=== PATIENT | female | born 1930 | race Two or more races ===

== ENCOUNTER → 2017-04-14 | Outpatient (CLI) | payer MEDICARE ==
[~2017-04-14] MED LIST: ASPI1TAB PO; BISO10TA6 PO; CALCTAB74 PO; FLUT22IN INFIL; LEVO50TA5 PO; LOSA100T36 PO; NORCOTAB PO; OMEP40CA2 PO; OXYB5TAB10 PO; PRAV20TA2 PO; PROAAER10 INH; VITA500T PO
--- NOTE | 2017-04-14 15:10 | REP ---
RIGHT LOWER EXTREMITY DUPLEX VENOUS ULTRASOUND WITH REFLUX STUDY: HISTORY: Atherosclerosis of the [place] arteries of the right leg. Ulceration of the heel and midfoot. Question venous insufficiency. Consideration for EVLT therapy. FINDINGS: The right lower extremity deep venous system is anechoic and fully compressible on two-dimensional scanning. Color flow and spectral Doppler interrogation show no evidence of deep vein thrombosis. REFLUX STUDY: Significant reflux is observed in the greater saphenous vein and in the anterior accessory greater saphenous vein in the right lower extremity. Reflux is observed in the common femoral vein segment as well, greater than 0.5 seconds in duration. The anterior accessory greater saphenous vein is present measuring 7.1 mm. It shows reflux greater than 0.5 seconds. The greater saphenous vein at the saphenofemoral junction measures 4.4 mm in diameter and shows reflux less than 0.5 seconds. The greater saphenous vein at the midthigh level measures 5 mm in AP dimension, and reflux is seen measuring 0.9 seconds in duration. At the knee, the greater saphenous vein measures 4.5 mm in dimension and demonstrates 6.1 seconds of reflux. The lesser saphenous vein measures 5.9 mm. The greater saphenous vein becomes quite superficial at midthigh to just below the knee and is just beneath the skin surface with collateral varicosities present. IMPRESSION: Significant reflux is noted in the greater saphenous vein and anterior accessory greater saphenous vein. Superficial collateral varicosities are seen. Patient likely would benefit from EVLT therapy. Signed by Dequan Mccarthy MD 04/14/2017 03:24 P
== END ==
LOC: M RAD 12:37
PROVIDERS: ATTEND Surgery
DX: I82.811 Embolism and thrombosis of superficial veins of right lower extremity (principal)

== ENCOUNTER → 2017-05-11 | Outpatient (CLI) | payer MEDICARE ==
[~2017-05-11] MED LIST changes: +ACETAMINOPHEN 325 MG TAB As Ordered ONE; +HEPARIN 1,000 UNITS/ML 10ML VIAL (FOR RADIOLOGY& DIALYSIS ONLY) As Ordered ONE; +ISOVUE-300 61% 50ML VIAL (Q9967) As Ordered ONE; +LIDOCAINE 2% MDV 20 ML VIAL As Ordered ONE; +MIDAZOLAM INJ 2 MG/2 ML VIAL (J2250) As Ordered ONE; +PROTAMINE SULF INJ 50 MG/5 ML VIAL (J2720) As Ordered ONE; +fentaNYL 100 MCG/2 ML INJECTION (J3010) As Ordered ONE
--- NOTE | 2017-05-11 15:46 | REP ---
IMAGES DURING ABDOMINAL AORTOGRAM AND RIGHT LOWER EXTREMITY ANGIOGRAM: Multiple images are obtained during abdominal aortogram and right lower extremity angiography. Distal abdominal aorta and pelvic arteries are visualized as are the arteries of the right lower extremity. 5.6 minutes fluoroscopy time utilized. Signed by Ajit Paredes MD 05/13/2017 05:46 P
--- NOTE | 2017-05-27 05:55 | RO ---
DATE OF PROCEDURE: 05/11/2017 PREPROCEDURE DIAGNOSIS: Nonhealing right foot wounds. Right lower extremity varicose veins. Right lower extremity arterial atherosclerotic disease. Right lower extremity valvular insufficiency. POSTPROCEDURE DIAGNOSIS: Nonhealing right foot wounds. Right lower extremity varicose veins. Right lower extremity arterial atherosclerotic disease. Right lower extremity valvular insufficiency. PROCEDURE: Aortogram, iliofemoral angiogram, selective right common femoral arterial catheter placement with right lower extremity angiogram, aortic angioplasty with two 8 x 4 balloons, right common and external iliac artery angioplasty and stent with 10 x 49 Wallstents post dilated with 8 x 4 balloons, left common iliac and external iliac artery angioplasty and stent with 10 x 49 Wallstents post dilated with 8 x 4 balloons, bilateral common femoral arteriotomy closures with #6-[place] Citizen Mynx closure devices. SURGEON: Dr. Naresh Jasso. PEOPLESOFT FUNCTIONAL ANALYST: Jacqueline Jonas and Britt Pak, LRT ANESTHESIA: Local with sedation with 0.5 mg of Versed and 25 mcg of Fentanyl and 20 mL of 2% lidocaine. ESTIMATED BLOOD LOSS: FLUORO TIME: 5.6 minutes. CONTRAST: 24 mL heparin 5000 units, protamine 50 mg. SEDATION TIME: From 9:30 a.m. to 10 o'clock a.m. COMPLICATIONS: None. DRAINS: None. SPECIMENS: None. IMPLANTS: Bilateral femoral arteriotomy closures with Mynx closure devices. INDICATION: Patient is an 87-year-old female who underwent surgery on her right foot and had two lesions which have developed into ulcerations. After the surgery, these have been nonhealing despite having undergone aggressive wound care. Patient has nonpalpable pulses distally as well as severe varicose veins and venous insufficiency. Patient will undergo an angiogram with possible angioplasty and/or stent. Risks, benefits and alternative treatment options were discussed with the patient. Benefits included but were not limited to resolution of symptoms and healing of ulcerations. Alternative treatment options included but were not limited to no intervention. Risks included but were not limited to infection, bleeding, renal failure requiring hemodialysis, possible need for open surgical intervention, retroperitoneal hematoma, IV contrast reaction, cerebrovascular accident, myocardial infarction, pulmonary embolus, deep venous thrombosis (DVT), loss of limb, loss of life and poor outcome. Patient understands, accepts these risks and consents to proceed. PROCEDURE: The patient was taken to the operating room and placed supine on the angiography room table and then prepped and draped in a standard surgical fashion. The procedural time out was completed with myself and all members of the team in the procedural room confirming the correct patinet, procedure and laterality. The patient was then prepped and draped in the standard surgical fashion. The left common femoral artery was then cannulated with a micropuncture needle after anesthetizing the overlying skin with 2% lidocaine. The micropuncture wire was advanced through the micropuncture needle which was upsized to a micropuncture sheath. A Bentson wire was advanced through the micropuncture sheath which was upsized to a #5-[place] Citizen sheath. An Omniflush catheter was advanced over the [place] wire placed in the aorta and an aortogram was performed. Catheter was pulled down to the level of the bifurcation of iliac arteries and an iliofemoral angiogram was performed. Catheter was then directed over the bifurcation of the iliac arteries and placed in the right common femoral artery and a right lower extremity angiogram was performed. 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 The right common femoral artery was then cannulated and a sheath placed with a #6-[place] Citizen sheath after which the aorta was angioplastied with two 8 x 4 balloons which were inflated simultaneously. After both common and external iliac arteries had been stented with 10 x 49 Wallstents, the common and external iliac arteries were then angioplastied with post dilatation of the stents with the 8 x 4 balloons. A completion aortogram showed resolution of the stenosis in the aorta and both common and external iliac arteries. Catheters and wires were removed. Bilateral Mynx closure devices were used to close the arteriotomies in the right and left common femoral arteries with an additional 10 minutes of adjunctive pressure applied for hemostasis. Dressings were then applied. Patient tolerated the procedure well. All instrument, sponge and needle counts were correct at the end of the case. There were no complications. Dr. Jasso was present for and directed the entire case. Patient was transferred to the holding area and subsequently discharged in stable condition. RADIOLOGIC SUPERVISION INTERPRETATION: The aortogram showed severe aortic calcific plaquing and stenosis at the bifurcation of the iliac arteries which extended into the external and common iliac arteries. The common iliac arteries were then stented with 10 x 49 wall stents bilaterally and then the aorta, common iliac and external iliac arteries were angioplastied with the 8 x 4 balloons. The aorta was angioplastied with insufflation of the two 8 x 4 balloons simultaneously within the lumen of the aorta. Bilateral Mynx closure devices were used to close the arteriotomies in the right and left femoral arteries.
--- NOTE | 2017-05-28 11:34 | REPKIM ---
DATE OF PROCEDURE: 05/11/2017 PREPROCEDURE DIAGNOSIS: Nonhealing right foot wounds. Right lower extremity varicose veins. Right lower extremity arterial atherosclerotic disease. Right lower extremity valvular insufficiency. POSTPROCEDURE DIAGNOSIS: Nonhealing right foot wounds. Right lower extremity varicose veins. Right lower extremity arterial atherosclerotic disease. Right lower extremity valvular insufficiency. PROCEDURE: Aortogram, iliofemoral angiogram, selective right common femoral arterial catheter placement with right lower extremity angiogram, aortic angioplasty with two 8 x 4 balloons, right common and external iliac artery angioplasty and stent with 10 x 49 Wallstents post dilated with 8 x 4 balloons, left common iliac and external iliac artery angioplasty and stent with 10 x 49 Wallstents post dilated with 8 x 4 balloons, bilateral common femoral arteriotomy closures with #6-[place] Mynx closure devices. SURGEON: Dr. Naresh Jasso. FORENSIC ENGINEER: Jacqueline Jonas and Britt Pak, LRT ANESTHESIA: Local with sedation with 0.5 mg of Versed and 25 mcg of Fentanyl and 20 mL of 2% lidocaine. ESTIMATED BLOOD LOSS: FLUORO TIME: 5.6 minutes. CONTRAST: 24 mL heparin 5000 units, protamine 50 mg. SEDATION TIME: From 9:30 a.m. to 10 o'clock a.m. COMPLICATIONS: None. DRAINS: None. SPECIMENS: None. IMPLANTS: Bilateral femoral arteriotomy closures with Mynx closure devices. INDICATION: Patient is an 87-year-old female who underwent surgery on her right foot and had two lesions which have developed into ulcerations. After the surgery, these have been nonhealing despite having undergone aggressive wound care. Patient has nonpalpable pulses distally as well as severe varicose veins and venous insufficiency. Patient will undergo an angiogram with possible angioplasty and/or stent. Risks, benefits and alternative treatment options were discussed with the patient. Benefits included but were not limited to resolution of symptoms and healing of ulcerations. Alternative treatment options included but were not limited to no intervention. Risks included but were not limited to infection, bleeding, renal failure requiring hemodialysis, possible need for open surgical intervention, retroperitoneal hematoma, IV contrast reaction, cerebrovascular accident, myocardial infarction, pulmonary embolus, deep venous thrombosis (DVT), loss of limb, loss of life and poor outcome. Patient understands, accepts these risks and consents to proceed. PROCEDURE: The patient was taken to the operating room and placed supine on the angiography room table and then prepped and draped in a standard surgical fashion. The procedural time out was completed with myself and all members of the team in the procedural room confirming the correct patient, procedure and laterality. The patient was then prepped and draped in the standard surgical fashion. The left common femoral artery was then cannulated with a micropuncture needle after anesthetizing the overlying skin with 2% lidocaine. The micropuncture wire was advanced through the micropuncture needle which was upsized to a micropuncture sheath. A Bentson wire was advanced through the micropuncture sheath which was upsized to a #5-[place] sheath. An Omniflush catheter was advanced over the [place] wire placed in the aorta and an aortogram was performed. Catheter was pulled down to the level of the bifurcation of iliac arteries and an iliofemoral angiogram was performed. Catheter was then directed over the bifurcation of the iliac arteries and placed in the right common femoral artery and a right lower extremity angiogram was performed. 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 The right common femoral artery was then cannulated and a sheath placed with a #6-[place] sheath after which the aorta was angioplastied with two 8 x 4 balloons which were inflated simultaneously. After both common and external iliac arteries had been stented with 10 x 49 Wallstents, the common and external iliac arteries were then angioplastied with post dilatation of the stents with the 8 x 4 balloons. A completion aortogram showed resolution of the stenosis in the aorta and both common and external iliac arteries. Catheters and wires were removed. Bilateral Mynx closure devices were used to close the arteriotomies in the right and left common femoral arteries with an additional 10 minutes of adjunctive pressure applied for hemostasis. Dressings were then applied. Patient tolerated the procedure well. All instrument, sponge and needle counts were correct at the end of the case. There were no complications. Dr. Jasso was present for and directed the entire case. Patient was transferred to the holding area and subsequently discharged in stable condition. RADIOLOGIC SUPERVISION INTERPRETATION: The aortogram showed severe aortic calcific plaquing and stenosis at the bifurcation of the iliac arteries which extended into the external and common iliac arteries. The common iliac arteries were then stented with 10 x 49 wall stents bilaterally and then the aorta, common iliac and external iliac arteries were angioplastied with the 8 x 4 balloons. The aorta was angioplastied with insufflation of the two 8 x 4 balloons simultaneously within the lumen of the aorta. Bilateral Mynx closure devices were used to close the arteriotomies in the right and left femoral arteries.
== END | disposition home or self-care (01) ==
LOC: M RADPRO 06:23 → M IRPRO 06:23
PROVIDERS: ATTEND Surgery Vascular Surgery
DX: I70.201 Unspecified atherosclerosis of native arteries of extremities, right leg (principal); I83.015 Varicose veins of right lower extremity with ulcer other part of foot; I87.2 Venous insufficiency (chronic) (peripheral)
CPT/HCPCS: 37221; 37246; 75625; 75716; 75774; C1725; C1760; C1769; C1876; C1887; C1894; J2250; J2720; J3010; Q9967

== ENCOUNTER → 2017-05-19 | Outpatient (CLI) | payer MEDICARE ==
[~2017-05-19] MED LIST changes: -ACETAMINOPHEN 325 MG TAB As Ordered ONE; -HEPARIN 1,000 UNITS/ML 10ML VIAL (FOR RADIOLOGY& DIALYSIS ONLY) As Ordered ONE; -ISOVUE-300 61% 50ML VIAL (Q9967) As Ordered ONE; -LIDOCAINE 2% MDV 20 ML VIAL As Ordered ONE; -MIDAZOLAM INJ 2 MG/2 ML VIAL (J2250) As Ordered ONE; -PROTAMINE SULF INJ 50 MG/5 ML VIAL (J2720) As Ordered ONE; -fentaNYL 100 MCG/2 ML INJECTION (J3010) As Ordered ONE
[2017-05-19 12:17] LABS: MEAN CORPUSCULAR HEMOGLOBIN 32.2 pg (27.0-33.0); MEAN CORPUSCULAR HGB CONC 34.1 g/dl (32.0-36.5); MEAN CORPUSCULAR VOLUME 94.4 fl (80.0-96.0); RED CELL DISTRIBUTION WIDTH 12.9 % (11.5-14.5); WHITE BLOOD COUNT 7.1 K/mm3 (4.0-10.0)
[2017-05-19 12:38] LABS: CALCIUM LEVEL 9.7 MG/DL (8.8-10.2); CREATININE FOR GFR 1.13 MG/DL (0.55-1.02); GLOMERULAR FILTRATION RATE 48.7 (>32); POTASSIUM SERUM 4.9 MEQ/L (3.5-5.1)
== END ==
LOC: M LAB 11:26
PROVIDERS: ATTEND Surgery Vascular Surgery
DX: I83.811 Varicose veins of right lower extremity with pain (principal)
CPT/HCPCS: 15275; 36415; 80048; 85027; Q4131

== ENCOUNTER → 2017-06-04 | Outpatient (CLI) | payer MEDICARE ==
--- NOTE | 2017-06-05 11:55 | ECGEPIP ---
Stationary ECG Study [facility] Test Date: 2017-06-04 Pat Name: DALJIT WHEELER Department: Room: - Gender: F Diamond Driller: GRACIA : [id number] Requested By: Ramiro Anderson Order Number: [id number] Reading MD: Yael Villegas Measurements Intervals [place] Rate: 53 P: 47 UT: 197 QRS: 14 QRSD: 86 T: 44 QT: 411 QTc: 388 Interpretive Statements SINUS BRADYCARDIA NO PRIOR Electronically Signed On 06-05-2017 11:55:29 EDT by Yael Villegas
== END ==
LOC: M EKG 10:19
PROVIDERS: ATTEND Anesthesiology
DX: Z01.810 Encounter for preprocedural cardiovascular examination (principal); I10 Essential (primary) hypertension; R00.1 Bradycardia, unspecified

== ENCOUNTER 2017-06-09 18:22 | Day surgery (SDC) | payer MEDICARE ==
[~2017-06-09] VITALS: Ht 157.5 cm; Wt 67.6 kg
[2017-06-09] MEDS: D5W/LR 1,000 ML IV SCH (13:45)
[2017-06-09] MEDS: PERCOCET 5MG/325MG TAB PO PRN ×2 (15:40→16:25)
[2017-06-09 18:08] VITALS: BP 158/60
[~2017-06-09 18:22] MED LIST changes: +ALBUTEROL 90 MCG/ACT 8GM HFA INHALER INH PRN; +LIDOCAINE 2% INJ 100 MG/5 ML SDV (FOR ANES.) As Ordered ONE; +LIDOCAINE W/EPINEPHRINE 1% 20ML VIAL As Ordered ONE; +LR 1,000 ML IV ONE; +LR 1,000 ML IV SCH; +MIDAZOLAM INJ 2 MG/2 ML VIAL (J2250) As Ordered ONE; +NORCO, ANEXSIA 5/325MG TABLET (HYDROcodone/ACETAMINOPHEN) PO PRN; -NORCOTAB PO; +ONDANSETRON 4MG/2ML VIAL (J2405) IV PRN; +PERCOCET 5MG/325MG TAB As Ordered ONE; +PROPOFOL 200 MG/20 ML VIAL As Ordered ONE; +fentaNYL 100 MCG/2 ML INJECTION (J3010) As Ordered ONE; +fentaNYL 100 MCG/2 ML INJECTION (J3010) IV PRN
[2017-06-09] MEDS: oxyBUTYnin 5 MG TAB PO SCH (20:40)
[2017-06-09] MEDS ORDERED: PRAVASTATIN 20 MG TAB PO SCH (21:00)
[2017-06-09 22:00] VITALS: BP 158/72
[2017-06-09] MEDS ORDERED: MORPHINE 4 MG/ML 1ML SYRINGE IV ONE (23:30)
[2017-06-10] MEDS: D5W/LR 1,000 ML IV SCH (02:15)
[2017-06-10] MEDS: NORCO, ANEXSIA 5/325MG TABLET (HYDROcodone/ACETAMINOPHEN) PO PRN ×2 (05:19→10:23)
[2017-06-10 06:00] VITALS: BP 143/66
[2017-06-10] MEDS ORDERED: LEVOTHYROXINE 50MCG TABLET (0.05MG) PO SCH (06:00)
[2017-06-10] MEDS ORDERED: OMEPRAZOLE 20 MG CAP PO SCH (09:00)
[2017-06-10] MEDS ORDERED: LOSARTAN 50 MG TAB PO SCH (09:00)
[2017-06-10] MEDS ORDERED: BISOPROLOL FUMARATE 10 MG TAB PO SCH (09:00)
[2017-06-10] MEDS ORDERED: ASPIRIN 81 MG ENTERIC TAB PO SCH (09:00)
[2017-06-10] MEDS ORDERED: ASCORBIC ACID 500 MG TAB PO SCH (09:00)
[2017-06-10 10:23] VITALS: BP 140/62
[2017-06-10] MEDS: oxyBUTYnin 5 MG TAB PO SCH (10:23)
[2017-06-10] MEDS ORDERED: NORCOTAB PO (11:11)
--- NOTE | 2017-06-23 11:50 | RO ---
DATE OF PROCEDURE: 06/09/2017 PREOPERATIVE DIAGNOSES: Right lower extremity varicose veins, right greater saphenous vein valvular insufficiency, nonhealing right foot venous stasis ulcers, right foot pain, aortoiliac atherosclerotic arterial occlusive disease, status post bilateral common and external iliac artery angioplasty and stenting. POSTOPERATIVE DIAGNOSES: Right lower extremity varicose veins, right greater saphenous vein valvular insufficiency, nonhealing right foot venous stasis ulcers, right foot pain, aortoiliac atherosclerotic arterial occlusive disease, status post bilateral common and external iliac artery angioplasty and stenting. PROCEDURE: Right greater saphenous vein radiofrequency ablation 10-20 stab phlebectomy of varicose veins in the right lower extremity. ATTENDING SURGEON: Dr. Azalea Jasso FLORIST MANAGER: None. INDICATION: The patient is an 87-year-old female with nonhealing ulcer in her right foot who has a large number of varicose veins and was evaluated and found to have valvular insufficiency in the right greater saphenous vein. The patient also has had angioplasty and stenting of her bilateral common and external iliac arteries due to aortoiliac arterial atherosclerotic disease. The patient will now undergo a right greater saphenous vein radiofrequency ablation and stab phlebectomy of painful varicosities. Risks, benefits, and alternative treatment options were discussed with the patient. Benefits included but were not limited to resolution of her symptoms and removal of painful varicose veins with healing of her venous stasis ulcers. Alternative treatment options included but were not limited to no intervention. Risks included but were not limited to infection, bleeding, renal failure requiring hemodialysis, possible need for further surgical intervention, cerebrovascular accident, myocardial infarction, pulmonary embolus, deep venous thrombosis (DVT), loss of limb, loss of life, and poor outcome. The patient accepts these risks and consents to proceed. The patient's questions were answered. The patient voices understanding of these risks, benefits, and alternative treatment options. ANESTHESIA: Monitored anesthesia care (MAC). ESTIMATED BLOOD LOSS: 50 mL. INTRAVENOUS (IV) FLUID: 300 mL. SPECIMEN: Right lower extremity varicose veins. COMPLICATIONS: None. DRAINS: None. IMPLANTS: None. PROCEDURE: The patient was taken to the operating room and placed prone on the operating room table, and the right lower extremity was prepped and draped in a standard surgical fashion. A time-out was then conducted by me and all team members in the room confirming the correct patient, procedure, and laterality. The ultrasound was then used to guide the greater saphenous vein in the below-knee region with the micropuncture needle after anesthetizing the overlying skin with 1% lidocaine. The micropuncture wire was advanced through the micropuncture needle, which was upsized to a micropuncture sheath. A J-wire was advanced through the micropuncture sheath, which was upsized to a 7-Chinese sheath. The radiofrequency ablation catheter was advanced through the sheath and positioned 2 cm distal to the saphenofemoral junction. The tumescent solution was then injected circumferentially around the greater saphenous vein from the saphenofemoral junction to the entry site in the below-knee region, after which the greater saphenous vein was ablated using the radiofrequency ablation catheter. The stab phlebectomies were then performed with 10-20 stab phlebectomies performed with removal of varicose veins. The stab incisions were closed using jaylin. Dressings were then applied. The patient tolerated the procedure well. All instrument, sponge, and needle counts were correct at the end of the case. There were no complications. Dr. Jasso was present for and directed the entire case. The patient was transferred to the recovery room awake, alert, extubated, and in stable condition.
== END 2017-06-10 13:23 | disposition home or self-care (01) ==
LOC: M SDC 18:22 → M MSPAV 18:23 → M SDC 06-10 13:23
PROVIDERS: ATTEND Surgery Vascular Surgery
DX: I83.811 Varicose veins of right lower extremity with pain (principal); I83.215 Varicose veins of right lower extremity with both ulcer other part of foot and inflammation; I70.0 Atherosclerosis of aorta; I87.2 Venous insufficiency (chronic) (peripheral); L97.519 Non-pressure chronic ulcer of other part of right foot with unspecified severity; I10 Essential (primary) hypertension; E78.00 Pure hypercholesterolemia, unspecified; E03.9 Hypothyroidism, unspecified; J45.909 Unspecified asthma, uncomplicated; Z88.6 Allergy status to analgesic agent; Z88.8 Allergy status to other drugs, medicaments and biological substances; Z79.899 Other long term (current) drug therapy; Z79.82 Long term (current) use of aspirin; Z87.891 Personal history of nicotine dependence; Z90.710 Acquired absence of both cervix and uterus; Z85.828 Personal history of other malignant neoplasm of skin; Z95.820 Peripheral vascular angioplasty status with implants and grafts
CPT/HCPCS: 36475; 37765; 88300; 96374; J2250; J3010

== ENCOUNTER → 2017-11-10 | Outpatient (REF) | payer MEDICARE | LOC: M LAB REF 17:36 | DX: I70.234 Atherosclerosis of native arteries of right leg with ulceration of heel and midfoot (principal); L97.412 Non-pressure chronic ulcer of right heel and midfoot with fat layer exposed | CPT/HCPCS: 87070; 87077 ==

== ENCOUNTER → 2017-11-16 | Outpatient (REF) | payer MEDICARE ==
[2017-11-16 19:43] LABS: CREATININE FOR GFR 1.17 MG/DL (0.55-1.30); GLOMERULAR FILTRATION RATE 46.8 (>32)
[2017-11-16 19:43] LABS: BLOOD UREA NITROGEN 30 MG/DL (7-18)
== END ==
LOC: M LAB REF 17:30
DX: L97.412 Non-pressure chronic ulcer of right heel and midfoot with fat layer exposed (principal); I70.234 Atherosclerosis of native arteries of right leg with ulceration of heel and midfoot
CPT/HCPCS: 82565

== ENCOUNTER 2017-11-19 12:24 | Inpatient (IN) | payer MEDICARE ==
[2017-11-19] MEDS: SENOKOT S TAB PO ×2 (09:00→20:29)
[2017-11-19] MEDS: DOCUSATE SODIUM 100 MG CAP PO ×2 (09:00→20:29)
[2017-11-19] MEDS: NS 1,000 ML IV (11:15)
[~2017-11-19 12:24] MED LIST changes: -ALBUTEROL 90 MCG/ACT 8GM HFA INHALER INH PRN; -ASPI1TAB PO; +BISACODYL 10 MG SUPP PR; -BISO10TA6 PO; -CALCTAB74 PO; -FLUT22IN INFIL; -LEVO50TA5 PO; -LIDOCAINE 2% INJ 100 MG/5 ML SDV (FOR ANES.) As Ordered ONE; -LIDOCAINE W/EPINEPHRINE 1% 20ML VIAL As Ordered ONE; -LOSA100T36 PO; -LR 1,000 ML IV ONE; -LR 1,000 ML IV SCH; -MIDAZOLAM INJ 2 MG/2 ML VIAL (J2250) As Ordered ONE; +MOM 30ML SUSPENSION UDC PO; -NORCO, ANEXSIA 5/325MG TABLET (HYDROcodone/ACETAMINOPHEN) PO PRN; -OMEP40CA2 PO; +ONDANSETRON 4MG/2ML VIAL (J2405) IV; -ONDANSETRON 4MG/2ML VIAL (J2405) IV PRN; -OXYB5TAB10 PO; -PERCOCET 5MG/325MG TAB As Ordered ONE; -PRAV20TA2 PO; -PROAAER10 INH; -PROPOFOL 200 MG/20 ML VIAL As Ordered ONE; -VITA500T PO; -fentaNYL 100 MCG/2 ML INJECTION (J3010) As Ordered ONE; -fentaNYL 100 MCG/2 ML INJECTION (J3010) IV PRN
[2017-11-19 13:08] LABS: BASO % 0.5 % (0.0-1.0); EOS # 0.3 10^3/uL (0.0-0.50); EOS % 3.3 % (0.0-3.0); HEMATOCRIT 39.6 % (36.0-47.0); HEMOGLOBIN 12.8 g/dl (12.0-16.0); IMMATURE GRANULOCYTE # 0.1 10^3/uL (0-0); IMMATURE GRANULOCYTE % 0.8 % (0-0); LYMPH # 2.2 10^3/uL (1.5-4.5); LYMPH % 24.9 % (24.0-44.0); MEAN CORPUSCULAR HEMOGLOBIN 29.6 pg (27.0-33.0); MEAN CORPUSCULAR HGB CONC 32.3 g/dl (32.0-36.5); MEAN CORPUSCULAR VOLUME 91.5 fl (80.0-96.0); MONO % 11.6 % (0.0-5.0); NEUTROPHILS # 5.2 10^3/uL (1.8-7.7); NEUTROPHILS % 58.9 % (36.0-66.0); PLATELET COUNT, AUTOMATED 298 10^3/uL (150-450); RED BLOOD COUNT 4.33 10^6/uL (4.00-5.40); RED CELL DISTRIBUTION WIDTH 13.2 % (11.5-14.5); WHITE BLOOD COUNT 8.8 10^3/uL (4.0-10.0)
[2017-11-19 13:24] LABS: INR 1.02; PARTIAL THROMBOPLASTIN TIME 30.9 SECONDS (26.8-37.9); PROTHROMBIN TIME 13.5 SECONDS (12.4-14.5)
[2017-11-19 13:40] LABS: ANION GAP 6 MEQ/L (8-16); BLOOD UREA NITROGEN 32 MG/DL (7-18); CALCIUM LEVEL 9.2 MG/DL (8.8-10.2); CARBON DIOXIDE LEVEL 28 MEQ/L (21-32); CHLORIDE LEVEL 106 MEQ/L (98-107); CREATININE FOR GFR 1.09 MG/DL (0.55-1.30); GLOMERULAR FILTRATION RATE 50.8 (>32); GLUCOSE, FASTING 80 MG/DL (70-100); POTASSIUM SERUM 4.7 MEQ/L (3.5-5.1); SODIUM LEVEL 140 MEQ/L (136-145)
[2017-11-19] MEDS: PIPERACILLIN/TAZOBACTAM SOD 3.375 GM in APPROPRIATE DILUENT 1 EA IV ×2 (16:00→22:20)
[2017-11-19] MEDS: ACETAMINOPHEN TAB 650MG DOSE (2X325MG) PO (20:30)
[2017-11-20] MEDS: NS 1,000 ML IV ×2 (04:04→17:25)
[2017-11-20] MEDS: PIPERACILLIN/TAZOBACTAM SOD 3.375 GM in APPROPRIATE DILUENT 1 EA IV ×4 (04:04→20:50)
[2017-11-20] MEDS: ACETAMINOPHEN TAB 650MG DOSE (2X325MG) PO ×3 (06:18→20:48)
[2017-11-20] MEDS: SENOKOT S TAB PO ×2 (08:34→20:48)
[2017-11-20] MEDS: DOCUSATE SODIUM 100 MG CAP PO ×2 (08:34→20:48)
[2017-11-20] MEDS: LOSARTAN 50 MG TAB PO (11:58)
[2017-11-20] MEDS: ASCORBIC ACID 500 MG TAB PO (11:58)
[2017-11-20] MEDS: CALCIUM/VITAMIN D 500 MG TAB PO (11:58)
[2017-11-20] MEDS: oxyBUTYnin 5 MG TAB PO (11:59)
[2017-11-20] MEDS: BISOPROLOL FUMARATE 10 MG TAB PO (12:59)
[2017-11-20] MEDS: LEVOTHYROXINE 50MCG TABLET (0.05MG) PO (12:59)
[2017-11-20] MEDS: OMEPRAZOLE 20 MG CAP PO (17:25)
[2017-11-20] MEDS: ASPIRIN 81 MG ENTERIC TAB PO (20:48)
[2017-11-20] MEDS: PRAVASTATIN 20 MG TAB PO (20:48)
[2017-11-20] MEDS: FLUTICASONE HFA 220 MCG 12 GM INHALER (FLOVENT) INH (21:13)
[2017-11-21] MEDS: PIPERACILLIN/TAZOBACTAM SOD 3.375 GM in APPROPRIATE DILUENT 1 EA IV ×4 (03:42→21:04)
[2017-11-21] MEDS: NS 1,000 ML IV (03:43)
[2017-11-21] MEDS: ACETAMINOPHEN TAB 650MG DOSE (2X325MG) PO ×3 (03:43→23:03)
[2017-11-21] MEDS: FLUTICASONE HFA 220 MCG 12 GM INHALER (FLOVENT) INH ×2 (07:23→20:45)
[2017-11-21] MEDS: LEVOTHYROXINE 50MCG TABLET (0.05MG) PO (08:51)
[2017-11-21] MEDS: oxyBUTYnin 5 MG TAB PO (08:51)
[2017-11-21] MEDS: ASCORBIC ACID 500 MG TAB PO (08:52)
[2017-11-21] MEDS: LOSARTAN 50 MG TAB PO (08:52)
[2017-11-21] MEDS: DOCUSATE SODIUM 100 MG CAP PO ×2 (08:52→21:05)
[2017-11-21] MEDS: CALCIUM/VITAMIN D 500 MG TAB PO (08:52)
[2017-11-21] MEDS: BISOPROLOL FUMARATE 10 MG TAB PO (08:53)
[2017-11-21] MEDS: SENOKOT S TAB PO ×2 (08:53→21:00)
[2017-11-21] MEDS: OMEPRAZOLE 20 MG CAP PO (18:32)
[2017-11-21] MEDS: PRAVASTATIN 20 MG TAB PO (21:06)
[2017-11-21] MEDS: ASPIRIN 81 MG ENTERIC TAB PO (21:06)
[2017-11-22] MEDS: PIPERACILLIN/TAZOBACTAM SOD 3.375 GM in APPROPRIATE DILUENT 1 EA IV ×4 (04:31→22:52)
[2017-11-22] MEDS: FLUTICASONE HFA 220 MCG 12 GM INHALER (FLOVENT) INH ×2 (09:55→21:19)
[2017-11-22] MEDS ORDERED: ISOVUE-300 61% 50ML VIAL (Q9967) As Ordered (15:41)
[2017-11-22] MEDS ORDERED: HEPARIN 1,000 UNITS/ML 10ML VIAL (FOR RADIOLOGY& DIALYSIS ONLY) As Ordered (15:41)
[2017-11-22] MEDS: ACETAMINOPHEN TAB 650MG DOSE (2X325MG) PO (17:29)
[2017-11-22] MEDS: oxyBUTYnin 5 MG TAB PO (17:30)
[2017-11-22] MEDS: OMEPRAZOLE 20 MG CAP PO (17:30)
[2017-11-22] MEDS: ASCORBIC ACID 500 MG TAB PO (17:31)
[2017-11-22] MEDS: BISOPROLOL FUMARATE 10 MG TAB PO (17:31)
[2017-11-22] MEDS: CALCIUM/VITAMIN D 500 MG TAB PO (17:31)
[2017-11-22] MEDS: SENOKOT S TAB PO ×2 (17:32→20:52)
[2017-11-22] MEDS: DOCUSATE SODIUM 100 MG CAP PO ×2 (17:32→20:52)
[2017-11-22] MEDS: LEVOTHYROXINE 50MCG TABLET (0.05MG) PO (17:32)
[2017-11-22] MEDS: LOSARTAN 50 MG TAB PO (17:33)
[2017-11-22] MEDS: ASPIRIN 81 MG ENTERIC TAB PO (20:52)
[2017-11-22] MEDS: PRAVASTATIN 20 MG TAB PO (20:52)
[2017-11-23] MEDS: PIPERACILLIN/TAZOBACTAM SOD 3.375 GM in APPROPRIATE DILUENT 1 EA IV ×4 (03:31→21:51)
[2017-11-23] MEDS: FLUTICASONE HFA 220 MCG 12 GM INHALER (FLOVENT) INH ×2 (07:29→20:44)
[2017-11-23] MEDS: DOCUSATE SODIUM 100 MG CAP PO ×2 (09:00→21:52)
[2017-11-23] MEDS: SENOKOT S TAB PO ×2 (09:00→21:52)
[2017-11-23] MEDS: CALCIUM/VITAMIN D 500 MG TAB PO (09:11)
[2017-11-23] MEDS: ASCORBIC ACID 500 MG TAB PO (09:11)
[2017-11-23] MEDS: oxyBUTYnin 5 MG TAB PO (09:11)
[2017-11-23] MEDS: LEVOTHYROXINE 50MCG TABLET (0.05MG) PO (09:11)
[2017-11-23] MEDS: BISOPROLOL FUMARATE 10 MG TAB PO (09:12)
[2017-11-23] MEDS: LOSARTAN 50 MG TAB PO (09:13)
[2017-11-23 09:19] LABS: BASO % 0.4 % (0.0-1.0); EOS # 0.4 10^3/uL (0.0-0.50); EOS % 4.2 % (0.0-3.0); HEMATOCRIT 42.5 % (36.0-47.0); HEMOGLOBIN 13.7 g/dl (12.0-16.0); IMMATURE GRANULOCYTE # 0.1 10^3/uL (0-0); IMMATURE GRANULOCYTE % 0.6 % (0-0); LYMPH % 24.2 % (24.0-44.0); MEAN CORPUSCULAR HEMOGLOBIN 29.9 pg (27.0-33.0); MEAN CORPUSCULAR HGB CONC 32.2 g/dl (32.0-36.5); MEAN CORPUSCULAR VOLUME 92.8 fl (80.0-96.0); MONO # 0.8 10^3/uL (0.0-0.8); MONO % 9.4 % (0.0-5.0); NEUTROPHILS # 5.1 10^3/uL (1.8-7.7); NEUTROPHILS % 61.2 % (36.0-66.0); PLATELET COUNT, AUTOMATED 303 10^3/uL (150-450); RED BLOOD COUNT 4.58 10^6/uL (4.00-5.40); RED CELL DISTRIBUTION WIDTH 13.1 % (11.5-14.5); WHITE BLOOD COUNT 8.3 10^3/uL (4.0-10.0)
[2017-11-23 09:44] LABS: ANION GAP 6 MEQ/L (8-16); BLOOD UREA NITROGEN 20 MG/DL (7-18); CALCIUM LEVEL 9.3 MG/DL (8.8-10.2); CARBON DIOXIDE LEVEL 30 MEQ/L (21-32); CHLORIDE LEVEL 105 MEQ/L (98-107); CREATININE FOR GFR 1.23 MG/DL (0.55-1.30); GLOMERULAR FILTRATION RATE 44.2 (>32); GLUCOSE, FASTING 96 MG/DL (70-100); POTASSIUM SERUM 4.4 MEQ/L (3.5-5.1); SODIUM LEVEL 141 MEQ/L (136-145)
[2017-11-23] MEDS: SODIUM CHLORIDE 0.9% 1000 ML IV (17:16)
[2017-11-23] MEDS: OMEPRAZOLE 20 MG CAP PO (17:16)
[2017-11-23] MEDS: PRAVASTATIN 20 MG TAB PO (21:53)
[2017-11-23] MEDS: ASPIRIN 81 MG ENTERIC TAB PO (21:53)
[2017-11-24] MEDS: PIPERACILLIN/TAZOBACTAM SOD 3.375 GM in APPROPRIATE DILUENT 1 EA IV ×4 (04:07→21:54)
[2017-11-24 06:58] LABS: HEMATOCRIT 39.7 % (36.0-47.0); HEMOGLOBIN 12.8 g/dl (12.0-16.0); MEAN CORPUSCULAR HEMOGLOBIN 29.7 pg (27.0-33.0); MEAN CORPUSCULAR HGB CONC 32.2 g/dl (32.0-36.5); MEAN CORPUSCULAR VOLUME 92.1 fl (80.0-96.0); PLATELET COUNT, AUTOMATED 239 10^3/uL (150-450); RED BLOOD COUNT 4.31 10^6/uL (4.00-5.40); RED CELL DISTRIBUTION WIDTH 13.2 % (11.5-14.5)
[2017-11-24 07:32] LABS: ANION GAP 6 MEQ/L (8-16); BLOOD UREA NITROGEN 23 MG/DL (7-18); CALCIUM LEVEL 9.3 MG/DL (8.8-10.2); CARBON DIOXIDE LEVEL 30 MEQ/L (21-32); CHLORIDE LEVEL 104 MEQ/L (98-107); CREATININE FOR GFR 1.24 MG/DL (0.55-1.30); GLOMERULAR FILTRATION RATE 43.8 (>32); GLUCOSE, FASTING 84 MG/DL (70-100); POTASSIUM SERUM 4.4 MEQ/L (3.5-5.1); SODIUM LEVEL 140 MEQ/L (136-145)
[2017-11-24] MEDS: LEVOTHYROXINE 50MCG TABLET (0.05MG) PO (08:33)
[2017-11-24] MEDS: DOCUSATE SODIUM 100 MG CAP PO ×2 (08:33→20:15)
[2017-11-24] MEDS: LOSARTAN 50 MG TAB PO (08:34)
[2017-11-24] MEDS: ASCORBIC ACID 500 MG TAB PO (08:35)
[2017-11-24] MEDS: BISOPROLOL FUMARATE 10 MG TAB PO (08:35)
[2017-11-24] MEDS: oxyBUTYnin 5 MG TAB PO (08:35)
[2017-11-24] MEDS: CALCIUM/VITAMIN D 500 MG TAB PO (08:35)
[2017-11-24] MEDS: SENOKOT S TAB PO ×2 (08:35→20:15)
[2017-11-24] MEDS: FLUTICASONE HFA 220 MCG 12 GM INHALER (FLOVENT) INH ×2 (08:55→20:34)
[2017-11-24] MEDS: NS 1,000 ML IV (10:19)
[2017-11-24] MEDS: EUCERIN 120GM CREAM TOP ×2 (12:57→20:15)
[2017-11-24] MEDS: ACETAMINOPHEN TAB 650MG DOSE (2X325MG) PO ×2 (15:00→21:54)
[2017-11-24] MEDS: OMEPRAZOLE 20 MG CAP PO (18:08)
[2017-11-24] MEDS: ASPIRIN 81 MG ENTERIC TAB PO (20:14)
[2017-11-24] MEDS: PRAVASTATIN 20 MG TAB PO (20:15)
[2017-11-25] MEDS: PIPERACILLIN/TAZOBACTAM SOD 3.375 GM in APPROPRIATE DILUENT 1 EA IV ×4 (04:13→22:00)
[2017-11-25 06:54] LABS: HEMATOCRIT 38.7 % (36.0-47.0); HEMOGLOBIN 12.3 g/dl (12.0-16.0); MEAN CORPUSCULAR HEMOGLOBIN 29.2 pg (27.0-33.0); MEAN CORPUSCULAR HGB CONC 31.8 g/dl (32.0-36.5); MEAN CORPUSCULAR VOLUME 91.9 fl (80.0-96.0); PLATELET COUNT, AUTOMATED 251 10^3/uL (150-450); RED BLOOD COUNT 4.21 10^6/uL (4.00-5.40); RED CELL DISTRIBUTION WIDTH 13.2 % (11.5-14.5)
[2017-11-25 07:28] LABS: ANION GAP 7 MEQ/L (8-16); BLOOD UREA NITROGEN 25 MG/DL (7-18); CARBON DIOXIDE LEVEL 28 MEQ/L (21-32); CHLORIDE LEVEL 108 MEQ/L (98-107); CREATININE FOR GFR 1.17 MG/DL (0.55-1.30); GLOMERULAR FILTRATION RATE 46.8 (>32); GLUCOSE, FASTING 78 MG/DL (70-100); POTASSIUM SERUM 3.8 MEQ/L (3.5-5.1); SODIUM LEVEL 143 MEQ/L (136-145)
[2017-11-25] MEDS: FLUTICASONE HFA 220 MCG 12 GM INHALER (FLOVENT) INH ×2 (07:58→20:44)
[2017-11-25] MEDS: oxyBUTYnin 5 MG TAB PO (08:45)
[2017-11-25] MEDS: CALCIUM/VITAMIN D 500 MG TAB PO (08:45)
[2017-11-25] MEDS: LEVOTHYROXINE 50MCG TABLET (0.05MG) PO (08:45)
[2017-11-25] MEDS: DOCUSATE SODIUM 100 MG CAP PO ×2 (08:45→21:59)
[2017-11-25] MEDS: ASCORBIC ACID 500 MG TAB PO (08:46)
[2017-11-25] MEDS: SENOKOT S TAB PO ×2 (08:46→21:59)
[2017-11-25] MEDS: EUCERIN 120GM CREAM TOP ×2 (08:48→22:00)
[2017-11-25] MEDS: BISOPROLOL FUMARATE 10 MG TAB PO (09:00)
[2017-11-25] MEDS ORDERED: LIDOCAINE 2% MDV 20 ML VIAL As Ordered (10:53)
[2017-11-25] MEDS ORDERED: ISOVUE-300 61% 50ML VIAL (Q9967) As Ordered (10:53)
[2017-11-25] MEDS ORDERED: HEPARIN 1,000 UNITS/ML 10ML VIAL (FOR RADIOLOGY& DIALYSIS ONLY) As Ordered (11:43)
[2017-11-25] MEDS: LOSARTAN 50 MG TAB PO (13:04)
[2017-11-25] MEDS: OMEPRAZOLE 20 MG CAP PO (17:39)
[2017-11-25] MEDS: ASPIRIN 81 MG ENTERIC TAB PO (21:59)
[2017-11-25] MEDS: PRAVASTATIN 20 MG TAB PO (22:00)
[2017-11-26] MEDS: PIPERACILLIN/TAZOBACTAM SOD 3.375 GM in APPROPRIATE DILUENT 1 EA IV ×2 (04:52→10:05)
[2017-11-26 07:00] LABS: HEMATOCRIT 39.7 % (36.0-47.0); HEMOGLOBIN 12.8 g/dl (12.0-16.0); MEAN CORPUSCULAR HEMOGLOBIN 29.5 pg (27.0-33.0); MEAN CORPUSCULAR HGB CONC 32.2 g/dl (32.0-36.5); MEAN CORPUSCULAR VOLUME 91.5 fl (80.0-96.0); PLATELET COUNT, AUTOMATED 232 10^3/uL (150-450); RED BLOOD COUNT 4.34 10^6/uL (4.00-5.40); RED CELL DISTRIBUTION WIDTH 13.1 % (11.5-14.5); WHITE BLOOD COUNT 8.6 10^3/uL (4.0-10.0)
[2017-11-26 07:18] LABS: ANION GAP 5 MEQ/L (8-16); BLOOD UREA NITROGEN 19 MG/DL (7-18); CARBON DIOXIDE LEVEL 29 MEQ/L (21-32); CHLORIDE LEVEL 107 MEQ/L (98-107); CREATININE FOR GFR 1.15 MG/DL (0.55-1.30); GLOMERULAR FILTRATION RATE 47.7 (>32); GLUCOSE, FASTING 83 MG/DL (70-100); POTASSIUM SERUM 4.4 MEQ/L (3.5-5.1); SODIUM LEVEL 141 MEQ/L (136-145)
[2017-11-26] MEDS: FLUTICASONE HFA 220 MCG 12 GM INHALER (FLOVENT) INH ×2 (07:23→20:36)
[2017-11-26] MEDS: DOCUSATE SODIUM 100 MG CAP PO ×2 (08:37→20:58)
[2017-11-26] MEDS: LEVOTHYROXINE 50MCG TABLET (0.05MG) PO (08:37)
[2017-11-26] MEDS: oxyBUTYnin 5 MG TAB PO (08:38)
[2017-11-26] MEDS: CALCIUM/VITAMIN D 500 MG TAB PO (08:38)
[2017-11-26] MEDS: ASCORBIC ACID 500 MG TAB PO (08:38)
[2017-11-26] MEDS: SENOKOT S TAB PO ×2 (08:38→20:58)
[2017-11-26] MEDS: LOSARTAN 50 MG TAB PO (08:38)
[2017-11-26] MEDS: BISOPROLOL FUMARATE 10 MG TAB PO (08:39)
[2017-11-26] MEDS: EUCERIN 120GM CREAM TOP ×2 (08:39→20:58)
[2017-11-26] MEDS: OMEPRAZOLE 20 MG CAP PO (17:34)
[2017-11-26] MEDS: PIPERACILLIN/TAZOBACTAM SOD 2.25 GM in APPROPRIATE DILUENT 1 EA IV ×2 (17:34→22:25)
[2017-11-26] MEDS: ASPIRIN 81 MG ENTERIC TAB PO (20:58)
[2017-11-26] MEDS: PRAVASTATIN 20 MG TAB PO (20:58)
[2017-11-27] MEDS: PIPERACILLIN/TAZOBACTAM SOD 2.25 GM in APPROPRIATE DILUENT 1 EA IV ×2 (04:05→11:24)
[2017-11-27 06:37] LABS: HEMATOCRIT 36.6 % (36.0-47.0); MEAN CORPUSCULAR HEMOGLOBIN 29.9 pg (27.0-33.0); MEAN CORPUSCULAR HGB CONC 32.8 g/dl (32.0-36.5); MEAN CORPUSCULAR VOLUME 91.3 fl (80.0-96.0); PLATELET COUNT, AUTOMATED 195 10^3/uL (150-450); RED BLOOD COUNT 4.01 10^6/uL (4.00-5.40); RED CELL DISTRIBUTION WIDTH 13.2 % (11.5-14.5)
[2017-11-27 07:03] LABS: ANION GAP 8 MEQ/L (8-16); BLOOD UREA NITROGEN 18 MG/DL (7-18); CALCIUM LEVEL 8.9 MG/DL (8.8-10.2); CARBON DIOXIDE LEVEL 27 MEQ/L (21-32); CHLORIDE LEVEL 106 MEQ/L (98-107); CREATININE FOR GFR 1.02 MG/DL (0.55-1.30); GLOMERULAR FILTRATION RATE 54.8 (>32); GLUCOSE, FASTING 89 MG/DL (70-100); POTASSIUM SERUM 3.9 MEQ/L (3.5-5.1); SODIUM LEVEL 141 MEQ/L (136-145)
[2017-11-27] MEDS: FLUTICASONE HFA 220 MCG 12 GM INHALER (FLOVENT) INH (07:37)
[2017-11-27] MEDS: ASCORBIC ACID 500 MG TAB PO (08:05)
[2017-11-27] MEDS: BISOPROLOL FUMARATE 10 MG TAB PO (08:05)
[2017-11-27] MEDS: LOSARTAN 50 MG TAB PO (08:05)
[2017-11-27] MEDS: SENOKOT S TAB PO (08:05)
[2017-11-27] MEDS: CALCIUM/VITAMIN D 500 MG TAB PO (08:06)
[2017-11-27] MEDS: LEVOTHYROXINE 50MCG TABLET (0.05MG) PO (08:06)
[2017-11-27] MEDS: EUCERIN 120GM CREAM TOP (08:06)
[2017-11-27] MEDS: oxyBUTYnin 5 MG TAB PO (08:06)
[2017-11-27] MEDS: DOCUSATE SODIUM 100 MG CAP PO (08:06)
== END 2017-11-27 12:42 | disposition home or self-care (01) | DRG 253 ==
LOC: M MS5PR 11-21 21:39 → M PCU 12:24
PROC: B310YZZ Fluoroscopy of Thoracic Aorta using Other Contrast (ICD-10-PCS; 2017-11-22)
PROC: B41FYZZ Fluoroscopy of Right Lower Extremity Arteries using Other Contrast (ICD-10-PCS; 2017-11-22)
PROC: 047K3DZ Dilation of Right Femoral Artery with Intraluminal Device, Percutaneous Approach (ICD-10-PCS; principal; 2017-11-25)
PROC: 047R3DZ Dilation of Right Posterior Tibial Artery with Intraluminal Device, Percutaneous Approach (ICD-10-PCS; 2017-11-25)
PROC: 047M3DZ Dilation of Right Popliteal Artery with Intraluminal Device, Percutaneous Approach (ICD-10-PCS; 2017-11-25)
DX: I70.234 Atherosclerosis of native arteries of right leg with ulceration of heel and midfoot (principal); L03.115 Cellulitis of right lower limb; I12.9 Hypertensive chronic kidney disease with stage 1 through stage 4 chronic kidney disease, or unspecified chronic kidney disease; L97.412 Non-pressure chronic ulcer of right heel and midfoot with fat layer exposed; N18.3 Chronic kidney disease, stage 3 (moderate); E03.9 Hypothyroidism, unspecified; K21.9 Gastro-esophageal reflux disease without esophagitis; J45.909 Unspecified asthma, uncomplicated; M21.611 Bunion of right foot; E78.5 Hyperlipidemia, unspecified; I83.93 Asymptomatic varicose veins of bilateral lower extremities; M81.0 Age-related osteoporosis without current pathological fracture; Z85.820 Personal history of malignant melanoma of skin; Z88.8 Allergy status to other drugs, medicaments and biological substances; Z88.6 Allergy status to analgesic agent; Z79.82 Long term (current) use of aspirin; Z79.899 Other long term (current) drug therapy

== ENCOUNTER → 2018-01-11 | Outpatient (CLI) | payer MEDICARE | LOC: M RAD 12:10 | DX: I83.812 Varicose veins of left lower extremity with pain (principal) | CPT/HCPCS: 93971 ==

== ENCOUNTER 2018-02-08 10:52 | Day surgery (SDC) | payer MEDICARE ==
[2018-02-08] MEDS: LR 1,000 ML IV ×2 (11:25→17:35)
[2018-02-08] MEDS ORDERED: dexameTHASONE 4 MG/ML 1ML VIAL (J1100) As Ordered (12:50)
[2018-02-08] MEDS ORDERED: ONDANSETRON 4MG/2ML VIAL (J2405) As Ordered (12:50)
[2018-02-08] MEDS ORDERED: MIDAZOLAM INJ 2 MG/2 ML VIAL (J2250) As Ordered (12:50)
[2018-02-08] MEDS ORDERED: LIDOCAINE 2% INJ 100 MG/5 ML SDV (FOR ANES.) As Ordered (12:50)
[2018-02-08] MEDS ORDERED: fentaNYL 100 MCG/2 ML INJECTION (J3010) As Ordered ×2 (12:50→15:37)
[2018-02-08] MEDS ORDERED: PROPOFOL 200 MG/20 ML VIAL As Ordered (12:50)
[2018-02-08] MEDS: LIDOCAINE W/EPINEPHRINE 1% 20ML VIAL As Ordered ×2 (14:58)
[2018-02-08] MEDS ORDERED: PHENYLephrine HCL 500 MCG/5 ML (100MCG/ML) SYRINGE (J2370) As Ordered (15:01)
[2018-02-08] MEDS: LIDOCAINE 1% SDV INJ 30 ML VIAL As Ordered (15:19)
[2018-02-08] MEDS ORDERED: BISACODYL 10 MG SUPP PR (15:45)
[2018-02-08] MEDS ORDERED: ONDANSETRON 4MG/2ML VIAL (J2405) IV ×2 (15:45→16:00)
[2018-02-08] MEDS ORDERED: MOM 30ML SUSPENSION UDC PO (15:45)
[2018-02-08] MEDS ORDERED: ACETAMINOPHEN TAB 650MG DOSE (2X325MG) PO (15:45)
[2018-02-08] MEDS ORDERED: MORPHINE 10 MG/ML 1ML VIAL (J2270) As Ordered (16:01)
[2018-02-08] MEDS: MORPHINE 10 MG/ML 1ML VIAL (J2270) IV ×3 (16:09→16:29)
[2018-02-08] MEDS: PERCOCET 5MG/325MG TAB PO (16:31)
[2018-02-08] MEDS: fentaNYL 100 MCG/2 ML INJECTION (J3010) IV (17:36)
[2018-02-08] MEDS: SENOKOT S TAB PO (20:59)
[2018-02-08] MEDS: ASPIRIN 81 MG ENTERIC TAB PO (20:59)
[2018-02-08] MEDS: DOCUSATE SODIUM 100 MG CAP PO (20:59)
[2018-02-08] MEDS: OMEPRAZOLE 20 MG CAP PO (20:59)
[2018-02-08] MEDS: NORCO, ANEXSIA 5/325MG TABLET (HYDROcodone/ACETAMINOPHEN) PO (20:59)
[2018-02-09] MEDS: NORCO, ANEXSIA 5/325MG TABLET (HYDROcodone/ACETAMINOPHEN) PO ×2 (01:51→09:29)
[2018-02-09] MEDS: FLUTICASONE HFA 220 MCG 12 GM INHALER (FLOVENT) INH ×2 (02:48→07:43)
[2018-02-09] MEDS: LEVOTHYROXINE 50MCG TABLET (0.05MG) PO (05:41)
[2018-02-09] MEDS: BISOPROLOL FUMARATE 10 MG TAB PO (09:28)
[2018-02-09] MEDS: LOSARTAN 50 MG TAB PO (09:29)
[2018-02-09] MEDS: ASCORBIC ACID 500 MG TAB PO (09:29)
[2018-02-09] MEDS: SENOKOT S TAB PO (09:29)
[2018-02-09] MEDS: DOCUSATE SODIUM 100 MG CAP PO (09:29)
== END 2018-02-09 15:00 | disposition home or self-care (01) ==
LOC: M SDC 10:52 → M MS5PR 17:20
DX: I83.812 Varicose veins of left lower extremity with pain (principal); I87.2 Venous insufficiency (chronic) (peripheral); I10 Essential (primary) hypertension; E78.5 Hyperlipidemia, unspecified; E03.9 Hypothyroidism, unspecified; J45.909 Unspecified asthma, uncomplicated; Z79.82 Long term (current) use of aspirin; Z79.899 Other long term (current) drug therapy; Z79.51 Long term (current) use of inhaled steroids; Z88.8 Allergy status to other drugs, medicaments and biological substances
CPT/HCPCS: 36475

== ENCOUNTER → 2018-02-18 | Outpatient (CLI) | payer MEDICARE | LOC: M RAD 10:11 | DX: I87.2 Venous insufficiency (chronic) (peripheral) (principal); I82.812 Embolism and thrombosis of superficial veins of left lower extremity | CPT/HCPCS: 93971 ==